=== PATIENT | female | born 1995 | race Caucasian/White ===

== ENCOUNTER 2018-09-13 06:20 | Day surgery (SDC) | payer OTHER ==
[2018-09-13] MEDS ORDERED: oxyCODONE HCL 5 MG TABLET PO PRN ×2 (06:50)
[2018-09-13 07:12] VITALS: BMI 21.0
--- NOTE | 2018-09-13 07:24 | HP ---
CHIEF COMPLAINT: Major depression PCP: Carlie Curriester [place] [phone] Primary Psychiatrist: [facility] HISTORY OF PRESENT ILLNESS: 23 year-old female with a PMH significant for Sofya's syndrome, asthma, Lyme's Disease, hyperthyroidism s/p thyroidectomy, anorexia, and major depressive disorder. Multiple psych hospitalizations. First received ECT in 09/2016. She presents today for ECT. 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) Asthma Lyme's Disease Hyperthyroidism Anorexia Major depression with psychotic features, strong suicdal ideation PAST SURGICAL HISTORY: T&A (03/1999) Thyroidectomy (12/2012) Allergies Sulfa (Sulfonamide Antibiotics) Allergy (Verified 09/08/18 15:05) seasonal Allergy (Uncoded 09/08/18 15:05) HOME MEDICATIONS: Home Medications Medication Instructions Recorded Aripiprazole [Abilify] 15 mg PO HS 09/08/18 Levothyroxine [Synthroid -] 150 mcg PO DAILY 09/08/18 [place] Carbonate [Eskalith -] 900 mg PO HS 09/08/18 Sertraline HCl [Zoloft -] 50 mg PO DAILY 09/08/18 REVIEW OF SYSTEMS CONSTITUTIONAL: Absent: fever, chills, diaphoresis, generalized weakness, malaise, loss of appetite, weight change HEENT: Absent: rhinorrhea, nasal congestion, throat pain, throat swelling, difficulty swallowing, mouth swelling, ear pain, eye pain, visual changes CARDIOVASCULAR: Absent: chest pain, syncope, palpitations, irregular heart rate, lightheadedness , peripheral edema RESPIRATORY: Absent: cough, shortness of breath, dyspnea with exertion, orthopnea, wheezing, stridor, hemoptysis GASTROINTESTINAL: Absent: abdominal pain, abdominal distension, nausea, vomiting, diarrhea, constipation, melena, hematochezia GENITOURINARY: Absent: dysuria, frequency, urgency, hesitancy, hematuria, flank pain, genital pain MUSCULOSKELETAL: Absent: myalgia, arthralgia, joint swelling, back pain, neck pain SKIN: Absent: rash, itching, pallor HEMATOLOGIC/IMMUNOLOGIC: Absent: easy bleeding, easy bruising, lymphadenopathy, frequent infections ENDOCRINE: Absent: unexplained weight gain, unexplained weight loss, heat intolerance, cold intolerance NEUROLOGIC: Absent: headache, focal weakness or paresthesias, dizziness, unsteady gait, seizure, mental status changes, bladder or bowel incontinence PHYSICAL EXAMINATION Vital Signs - 24 hr 09/13/18 06:54 Temperature 98.2 F Pulse Rate 72 Respiratory 18 Rate Blood Pressure 114/74 O2 Sat by Pulse 100 Oximetry (%) GENERAL: Awake, alert, and fully oriented, in no acute distress. HEAD: Normal with no signs of trauma. EYES: Pupils equal, round and reactive to light, sclera anicteric, conjunctiva clear. LUNGS: Breath sounds equal, clear to auscultation bilaterally. No wheezes, and no crackles. No accessory muscle use. HEART: Regular rate and rhythm, normal S1 and S2 ABDOMEN: Soft, nontender, not distended MUSCULOSKELETAL: Normal range of motion at all joints. No bony deformities or tenderness. No CVA tenderness. UPPER EXTREMITIES: 2+ pulses, warm, well-perfused. No cyanosis. No clubbing. No peripheral edema. LOWER EXTREMITIES: 2+ pulses, warm, well-perfused. No calf tenderness. No peripheral edema. NEUROLOGICAL: Cranial nerves II-XII intact. Normal speech. ASSESSMENT/PLAN: 23 year-old female with a PMH significant for Sofya's syndrome, asthma, Lyme's Disease, hyperthyroidism s/p thyroidectomy, anorexia, and major depressive disorder. Multiple psych hospitalizations. First received ECT in 09/2016. She presents today for ECT. Cardiac --no cardiac history --Revised Cardiac Risk Index for Pre-Operative Risk: 0 points, 0.4% risk of major cardiac event Pulmonary --no pulmonary history Neurological --no neurological or neurosurgical history; no history of trauma Anesthesia --no reported problems with anesthesia ECT is a low risk procedure. The relative benefits of the planned procedure outweigh the relative risks for this patient at this time. Visit type - Emergency Visit Emergency Visit: No - New Patient This patient is new to me today: Yes Date on this admission: 09/13/18 - Critical Care Critical Care patient: No
[2018-09-13] MEDS ORDERED: KETAMINE HCL 500 MG/10 ML VIAL ONE (07:42)
[2018-09-13 09:30] VITALS: TEMP 97.9
[2018-09-13 09:36] VITALS: BP 105/61; PULSE 73
== END 2018-09-13 09:30 | disposition home or self-care (01) ==
LOC: FECT 06:20
PROVIDERS: ATTEND Psychiatry & Neurology Psychiatry
PROC: GZB4ZZZ Other Electroconvulsive Therapy (ICD-10-PCS; principal; 2018-09-13 07:15)
DX: F32.9 Major depressive disorder, single episode, unspecified (principal)
CPT/HCPCS: 81025; 90870; 94760

== ENCOUNTER 2018-09-15 05:45 | Day surgery (SDC) | payer OTHER ==
[2018-09-13 18:41] VITALS: BMI 21.0
[2018-09-15 06:29] VITALS: TEMP 98.3
[2018-09-15] MEDS ORDERED: KETAMINE HCL 500 MG/10 ML VIAL ONE (07:02)
[2018-09-15 09:38] VITALS: BP 108/70; PULSE 77
[2018-09-15] MEDS ORDERED: ONDANSETRON 4 MG/2 ML VIAL IVPUSH PRN (09:43)
[2018-09-15] MEDS ORDERED: LACTATED RINGERS SOLUTION 1,000 ML IV SCH (09:45)
== END 2018-09-15 09:25 | disposition home or self-care (01) ==
LOC: FECT 05:45
PROVIDERS: ATTEND Psychiatry & Neurology Psychiatry
PROC: GZB4ZZZ Other Electroconvulsive Therapy (ICD-10-PCS; principal; 2018-09-15 07:45)
DX: F31.9 Bipolar disorder, unspecified (principal)
CPT/HCPCS: 90870; 94760

== ENCOUNTER 2018-10-03 06:09 | Day surgery (SDC) | payer OTHER | END 2018-10-03 09:10 | disposition home or self-care (01) | LOC: FECT 06:09 ==

== ENCOUNTER 2018-10-10 05:57 | Day surgery (SDC) | payer OTHER | END 2018-10-10 08:50 | disposition home or self-care (01) | LOC: FASU 05:57 ==

== ENCOUNTER 2018-10-13 05:42 | Day surgery (SDC) | payer OTHER | END 2018-10-13 09:02 | disposition home or self-care (01) | LOC: FECT 05:42 ==

== ENCOUNTER 2018-10-17 05:45 | Day surgery (SDC) | payer OTHER | END 2018-10-17 09:25 | disposition home or self-care (01) | LOC: FECT 05:45 ==

== ENCOUNTER 2018-10-20 05:46 | Day surgery (SDC) | payer OTHER ==
[2018-10-20 06:31] VITALS: BMI 20.9
[2018-10-20 08:06] VITALS: TEMP 97.9
[2018-10-20 08:24] VITALS: BP 97/51; PULSE 76
== END 2018-10-20 08:26 | disposition home or self-care (01) ==
LOC: FECT 05:46
PROVIDERS: ATTEND Psychiatry & Neurology Psychiatry
PROC: GZB4ZZZ Other Electroconvulsive Therapy (ICD-10-PCS; principal; 2018-10-20 07:30)
DX: F31.89 Other bipolar disorder (principal)
CPT/HCPCS: 90870; 94760

== ENCOUNTER 2018-10-24 05:45 | Day surgery (SDC) | payer OTHER | END 2018-10-24 08:05 | disposition home or self-care (01) | LOC: FECT 05:45 ==

== ENCOUNTER 2018-10-27 05:47 | Day surgery (SDC) | payer OTHER ==
[2018-10-27 06:47] VITALS: TEMP 98.2; BMI 20.9
[2018-10-27] MEDS ORDERED: LACTATED RINGERS SOLUTION 1,000 ML IV SCH (07:00)
[2018-10-27 08:06] VITALS: PULSE 76
[2018-10-27 08:23] VITALS: BP 101/61
== END 2018-10-27 08:25 | disposition home or self-care (01) ==
LOC: FECT 05:47
PROVIDERS: ATTEND Psychiatry & Neurology Psychiatry
PROC: GZB4ZZZ Other Electroconvulsive Therapy (ICD-10-PCS; principal; 2018-10-27 07:45)
DX: F31.60 Bipolar disorder, current episode mixed, unspecified (principal)
CPT/HCPCS: 90870; 94760

== ENCOUNTER 2018-11-01 05:41 | Day surgery (SDC) | payer OTHER ==
[2018-10-27 12:09] VITALS: BMI 20.9
[2018-11-01] MEDS ORDERED: ACETAMINOPHEN 325 MG TABLET (FP) PO PRN (07:44)
[2018-11-01] MEDS ORDERED: ONDANSETRON 4 MG/2 ML VIAL IVPUSH PRN (07:44)
[2018-11-01 08:01] VITALS: BP 97/52; TEMP 97.3
[2018-11-01 08:29] VITALS: PULSE 76
== END 2018-11-01 08:30 | disposition home or self-care (01) ==
LOC: FECT 05:41
PROVIDERS: ATTEND Psychiatry & Neurology Psychiatry
PROC: GZB4ZZZ Other Electroconvulsive Therapy (ICD-10-PCS; principal; 2018-11-01 07:30)
DX: F31.89 Other bipolar disorder (principal)
CPT/HCPCS: 81025; 90870; 94760

== ENCOUNTER 2018-11-07 05:41 | Day surgery (SDC) | payer OTHER ==
[2018-11-07 06:52] VITALS: BMI 20.9
[2018-11-07] MEDS ORDERED: LACTATED RINGERS SOLUTION 1,000 ML IV SCH (07:00)
[2018-11-07 08:39] VITALS: TEMP 98.2
[2018-11-07 08:40] VITALS: BP 101/56; PULSE 77
== END 2018-11-07 08:35 | disposition home or self-care (01) ==
LOC: FECT 05:41
PROVIDERS: ATTEND Psychiatry & Neurology Psychiatry
PROC: GZB4ZZZ Other Electroconvulsive Therapy (ICD-10-PCS; principal; 2018-11-07 08:30)
DX: F31.89 Other bipolar disorder (principal)
CPT/HCPCS: 81025; 90870; 94760

== ENCOUNTER 2018-11-15 06:54 | Day surgery (SDC) | payer OTHER ==
[2018-11-15 08:12] VITALS: BMI 20.9
[2018-11-15 08:23] VITALS: BP 113/64; PULSE 88; TEMP 97.9
[2018-11-15] MEDS ORDERED: LACTATED RINGERS SOLUTION 1,000 ML IV SCH (09:45)
[2018-11-15] MEDS ORDERED: PROMETHAZINE HCL 25 MG/1 ML VIAL IVPUSH PRN (09:45)
[2018-11-15] MEDS ORDERED: ACETAMINOPHEN 325 MG TABLET (FP) PO PRN (09:45)
== END 2018-11-15 08:30 | disposition home or self-care (01) ==
LOC: FECT 06:54
PROVIDERS: ATTEND Psychiatry & Neurology Psychiatry
PROC: GZB4ZZZ Other Electroconvulsive Therapy (ICD-10-PCS; principal; 2018-11-15 07:15)
DX: F31.89 Other bipolar disorder (principal)
CPT/HCPCS: 81025; 90870; 94760

== ENCOUNTER 2018-11-21 05:54 | Day surgery (SDC) | payer OTHER ==
[2018-11-21 07:46] VITALS: TEMP 98; BMI 20.9
--- NOTE | 2018-11-21 07:57 | HP ---
CHIEF COMPLAINT: Major depression PCP: Dr. Дмитрий Soler, [place] [phone] Primary Psychiatrist: [facility] HISTORY OF PRESENT ILLNESS: 23 year-old female with a PMH significant for Sofya's syndrome, asthma, Lyme's Disease, hyperthyroidism s/p thyroidectomy, anorexia, and major depressive disorder. Multiple psych hospitalizations. First received ECT in 09/2016. She presents today for ECT. 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 in [place] Allergies Sulfa (Sulfonamide Antibiotics) Allergy (Verified 10/23/18 14:28) seasonal Allergy (Uncoded 10/23/18 14:28) HOME MEDICATIONS: Home Medications Medication Instructions Recorded Aripiprazole [Abilify] 15 mg PO HS 09/08/18 Levothyroxine [Synthroid -] 150 mcg PO DAILY 09/08/18 [place] Carbonate [Eskalith -] 900 mg PO HS 09/08/18 Divalproex Sodium [Depakote] 250 mg PO HS 10/13/18 REVIEW OF SYSTEMS CONSTITUTIONAL: Absent: fever, chills, diaphoresis, generalized weakness, malaise, loss of appetite, weight change HEENT: Absent: rhinorrhea, nasal congestion, throat pain, throat swelling, difficulty swallowing, mouth swelling, ear pain, eye pain, visual changes CARDIOVASCULAR: Absent: chest pain, syncope, palpitations, irregular heart rate, lightheadedness , peripheral edema RESPIRATORY: Absent: cough, shortness of breath, dyspnea with exertion, orthopnea, wheezing, stridor, hemoptysis GASTROINTESTINAL: Absent: abdominal pain, abdominal distension, nausea, vomiting, diarrhea, constipation, melena, hematochezia GENITOURINARY: Absent: dysuria, frequency, urgency, hesitancy, hematuria, flank pain, genital pain MUSCULOSKELETAL: Absent: myalgia, arthralgia, joint swelling, back pain, neck pain SKIN: Absent: rash, itching, pallor HEMATOLOGIC/IMMUNOLOGIC: Absent: easy bleeding, easy bruising, lymphadenopathy, frequent infections ENDOCRINE: Absent: unexplained weight gain, unexplained weight loss, heat intolerance, cold intolerance NEUROLOGIC: Absent: headache, focal weakness or paresthesias, dizziness, unsteady gait, seizure, mental status changes, bladder or bowel incontinence PHYSICAL EXAMINATION Vital Signs - 24 hr 11/21/18 07:43 Temperature 98.0 F Pulse Rate 91 H Respiratory 18 Rate Blood Pressure 103/74 O2 Sat by Pulse 98 Oximetry (%) GENERAL: Awake, alert, and fully oriented, in no acute distress. HEAD: Normal with no signs of trauma. EYES: Pupils equal, round and reactive to light, sclera anicteric, conjunctiva clear. LUNGS: Breath sounds equal, clear to auscultation bilaterally. No wheezes, and no crackles. No accessory muscle use. HEART: Regular rate and rhythm, normal S1 and S2 ABDOMEN: Soft, nontender, not distended MUSCULOSKELETAL: Normal range of motion at all joints. No bony deformities or tenderness. No CVA tenderness. UPPER EXTREMITIES: 2+ pulses, warm, well-perfused. No cyanosis. No clubbing. No peripheral edema. LOWER EXTREMITIES: 2+ pulses, warm, well-perfused. No calf tenderness. No peripheral edema. NEUROLOGICAL: Cranial nerves II-XII intact. Normal speech. ASSESSMENT/PLAN: 23 year-old female with a PMH significant for Sofya's syndrome, asthma, Lyme's Disease, hyperthyroidism s/p thyroidectomy, anorexia, and major depressive disorder. She presents today for ECT. Cardiac --no cardiac history --Revised Cardiac Risk Index for Pre-Operative Risk: 0 points, 0.4% risk of major cardiac event Pulmonary --no pulmonary history Neurological --no neurological or neurosurgical history; no history of trauma Anesthesia --no reported problems with anesthesia ECT is a low risk procedure. The relative benefits of the planned procedure outweigh the relative risks for this patient at this time. Visit type - Emergency Visit Emergency Visit: No - New Patient This patient is new to me today: Yes Date on this admission: 11/21/18 - Critical Care Critical Care patient: No
[2018-11-21] MEDS ORDERED: ACETAMINOPHEN 325 MG TABLET (FP) PO PRN (08:35)
[2018-11-21 09:58] VITALS: BP 94/56; PULSE 66
== END 2018-11-21 10:00 | disposition home or self-care (01) ==
LOC: FECT 05:54
PROVIDERS: ATTEND Psychiatry & Neurology Psychiatry
PROC: GZB4ZZZ Other Electroconvulsive Therapy (ICD-10-PCS; principal; 2018-11-21 08:15)
DX: F31.89 Other bipolar disorder (principal)
CPT/HCPCS: 81025; 90870; 94760

== ENCOUNTER 2018-11-28 05:46 | Day surgery (SDC) | payer OTHER ==
[2018-11-28 06:40] VITALS: BMI 21.5
[2018-11-28 08:21] VITALS: TEMP 98
[2018-11-28 08:45] VITALS: BP 102/60; PULSE 73
[2018-11-28] MEDS ORDERED: oxyCODONE HCL 5 MG TABLET PO PRN (08:47)
[2018-11-28] MEDS ORDERED: ONDANSETRON 4 MG/2 ML VIAL IVPUSH PRN (08:47)
== END 2018-11-28 08:50 | disposition home or self-care (01) ==
LOC: FECT 05:46
PROVIDERS: ATTEND Psychiatry & Neurology Psychiatry
PROC: GZB4ZZZ Other Electroconvulsive Therapy (ICD-10-PCS; principal; 2018-11-28 07:45)
DX: F31.62 Bipolar disorder, current episode mixed, moderate (principal)
CPT/HCPCS: 81025; 90870; 94760

== ENCOUNTER 2018-12-05 05:38 | Day surgery (SDC) | payer OTHER | END 2018-12-05 08:50 | disposition home or self-care (01) | LOC: FECT 05:38 ==

== ENCOUNTER 2018-12-19 05:40 | Day surgery (SDC) | payer OTHER ==
--- NOTE | 2018-12-19 07:06 | HP ---
CHIEF COMPLAINT: Major depression PCP: Dr. Дмитрий Soler, [place] [phone] Primary Psychiatrist: [facility] HISTORY OF PRESENT ILLNESS: 23 year-old female with a PMH significant for Sofya's syndrome, asthma, Lyme's Disease, hyperthyroidism s/p thyroidectomy, anorexia, and major depressive disorder. Multiple psych hospitalizations. First received ECT in 09/2016. She presents today for ECT. 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) Asthma Lyme's Disease Hyperthyroidism Anorexia Major depression with psychotic features PAST SURGICAL HISTORY: T&A (03/1999) Thyroidectomy (12/2012) Social History: works in [employer]; lives with family in [facility] in [place] Family history: non-contributory Allergies Sulfa (Sulfonamide Antibiotics) Allergy (Verified 12/05/18 06:35) UNKNOW seasonal Allergy (Uncoded 12/05/18 06:35) HOME MEDICATIONS: Home Medications Medication Instructions Recorded Aripiprazole [Abilify] 15 mg PO HS 09/08/18 Levothyroxine [Synthroid -] 150 mcg PO DAILY 09/08/18 [place] Carbonate [Eskalith -] 900 mg PO HS 09/08/18 Divalproex Sodium [Depakote] 250 mg PO HS 10/13/18 REVIEW OF SYSTEMS CONSTITUTIONAL: Absent: fever, chills, diaphoresis, generalized weakness, malaise, loss of appetite, weight change HEENT: Absent: rhinorrhea, nasal congestion, throat pain, throat swelling, difficulty swallowing, mouth swelling, ear pain, eye pain, visual changes CARDIOVASCULAR: Absent: chest pain, syncope, palpitations, irregular heart rate, lightheadedness , peripheral edema RESPIRATORY: Absent: cough, shortness of breath, dyspnea with exertion, orthopnea, wheezing, stridor, hemoptysis GASTROINTESTINAL: Absent: abdominal pain, abdominal distension, nausea, vomiting, diarrhea, constipation, melena, hematochezia GENITOURINARY: Absent: dysuria, frequency, urgency, hesitancy, hematuria, flank pain, genital pain MUSCULOSKELETAL: Absent: myalgia, arthralgia, joint swelling, back pain, neck pain SKIN: Absent: rash, itching, pallor HEMATOLOGIC/IMMUNOLOGIC: Absent: easy bleeding, easy bruising, lymphadenopathy, frequent infections ENDOCRINE: Absent: unexplained weight gain, unexplained weight loss, heat intolerance, cold intolerance NEUROLOGIC: Absent: headache, focal weakness or paresthesias, dizziness, unsteady gait, seizure, mental status changes, bladder or bowel incontinence PHYSICAL EXAMINATION GENERAL: Awake, alert, and fully oriented, in no acute distress. HEAD: Normal with no signs of trauma. EYES: Pupils equal, round and reactive to light, sclera anicteric, conjunctiva clear. LUNGS: Breath sounds equal, clear to auscultation bilaterally. No wheezes, and no crackles. No accessory muscle use. HEART: Regular rate and rhythm, normal S1 and S2 ABDOMEN: Soft, nontender, not distended MUSCULOSKELETAL: Normal range of motion at all joints. No bony deformities or tenderness. No CVA tenderness. UPPER EXTREMITIES: 2+ pulses, warm, well-perfused. No cyanosis. No clubbing. No peripheral edema. LOWER EXTREMITIES: 2+ pulses, warm, well-perfused. No calf tenderness. No peripheral edema. NEUROLOGICAL: Cranial nerves II-XII intact. Normal speech. ASSESSMENT/PLAN: 23 year-old female with a PMH significant for [place]'s syndrome, asthma, Lyme's Disease, hyperthyroidism s/p thyroidectomy, anorexia, and major depressive disorder. She presents today for ECT. Cardiac --no cardiac history --Revised Cardiac Risk Index for Pre-Operative Risk: 0 points, 0.4% risk of major cardiac event Pulmonary --no pulmonary history Neurological --no neurological or neurosurgical history; no history of trauma Anesthesia --no reported problems with anesthesia ECT is a low risk procedure. The relative benefits of the planned procedure outweigh the relative risks for this patient at this time. Visit type - Emergency Visit Emergency Visit: No - New Patient This patient is new to me today: Yes Date on this admission: 12/19/18 - Critical Care Critical Care patient: No
[2018-12-19 07:11] VITALS: TEMP 98.2; BMI 21.4
[2018-12-19] MEDS ORDERED: ONDANSETRON 4 MG/2 ML VIAL IVPUSH PRN (07:38)
[2018-12-19] MEDS ORDERED: oxyCODONE HCL 5 MG TABLET PO PRN (07:38)
[2018-12-19 09:35] VITALS: BP 104/58; PULSE 88
== END 2018-12-19 09:10 | disposition home or self-care (01) ==
LOC: FECT 05:40
PROVIDERS: ATTEND Psychiatry & Neurology Psychiatry
PROC: GZB4ZZZ Other Electroconvulsive Therapy (ICD-10-PCS; principal; 2018-12-19 07:30)
DX: F31.89 Other bipolar disorder (principal)
CPT/HCPCS: 81025; 90870; 94760

== ENCOUNTER 2019-01-02 05:56 | Day surgery (SDC) | payer OTHER ==
[2019-01-02 07:00] VITALS: BMI 21.4
[2019-01-02 08:42] VITALS: TEMP 98.9
[2019-01-02 09:17] VITALS: BP 102/48; PULSE 72
[2019-01-02] MEDS ORDERED: LACTATED RINGERS SOLUTION 1,000 ML IV SCH (10:00)
== END 2019-01-02 09:15 | disposition home or self-care (01) ==
LOC: FECT 05:56
PROVIDERS: ATTEND Psychiatry & Neurology Psychiatry
PROC: GZB4ZZZ Other Electroconvulsive Therapy (ICD-10-PCS; principal; 2019-01-02 07:30)
DX: F31.89 Other bipolar disorder (principal)
CPT/HCPCS: 81025; 90870; 94760

== ENCOUNTER 2019-01-16 05:44 | Day surgery (SDC) | payer OTHER ==
[2019-01-16 07:04] VITALS: BMI 21.4
[2019-01-16] MEDS ORDERED: ONDANSETRON 4 MG/2 ML VIAL IVPUSH PRN (08:22)
[2019-01-16] MEDS ORDERED: ACETAMINOPHEN 325 MG TABLET (FP) PO PRN (08:22)
[2019-01-16] MEDS ORDERED: oxyCODONE HCL 5 MG TABLET PO PRN (08:22)
[2019-01-16 08:33] VITALS: TEMP 98.5
[2019-01-16 09:46] VITALS: BP 96/52; PULSE 68
== END 2019-01-16 09:40 | disposition home or self-care (01) ==
LOC: FECT 05:44
PROVIDERS: ATTEND Psychiatry & Neurology Psychiatry
PROC: GZB4ZZZ Other Electroconvulsive Therapy (ICD-10-PCS; principal; 2019-01-16 07:15)
DX: F31.62 Bipolar disorder, current episode mixed, moderate (principal)
CPT/HCPCS: 81025; 90870; 94760

== ENCOUNTER 2019-01-30 05:44 | Day surgery (SDC) | payer OTHER ==
[2019-01-30 07:13] VITALS: TEMP 98.6
[2019-01-30] MEDS ORDERED: LACTATED RINGERS SOLUTION 1,000 ML IV SCH (07:15)
[2019-01-30 07:28] VITALS: BMI 22.2
--- NOTE | 2019-01-30 07:41 | HP ---
CHIEF COMPLAINT: Major depression PCP: Dr. Дмитрий Soler, [place] [phone] Primary Psychiatrist: [facility] HISTORY OF PRESENT ILLNESS: 23 year-old female with a PMH significant for Sofya syndrome (multiple hamartoma syndrome), asthma, Lyme's Disease, hyperthyroidism s/p thyroidectomy, anorexia, and major depressive disorder. Multiple psych hospitalizations. First received ECT in 09/2016. She presents today for ECT. 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) Asthma Lyme's Disease Hyperthyroidism Anorexia Major depression with psychotic features PAST SURGICAL HISTORY: T&A (03/1999) Thyroidectomy (12/2012) Social History: works in [employer]; lives with family in [facility] in [place] Family history: non-contributory Allergies Sulfa (Sulfonamide Antibiotics) Allergy (Verified 12/05/18 06:35) UNKNOW seasonal Allergy (Uncoded 12/05/18 06:35) HOME MEDICATIONS: Home Medications Medication Instructions Recorded Aripiprazole [Abilify] 15 mg PO HS 09/08/18 Levothyroxine [Synthroid -] 150 mcg PO DAILY 09/08/18 [place] Carbonate [Eskalith -] 900 mg PO HS 09/08/18 Divalproex Sodium [Depakote] 250 mg PO HS 10/13/18 Sertraline HCl [Zoloft -] 50 mg PO DAILY 01/30/19 REVIEW OF SYSTEMS CONSTITUTIONAL: Absent: fever, chills, diaphoresis, generalized weakness, malaise, loss of appetite, weight change HEENT: Absent: rhinorrhea, nasal congestion, throat pain, throat swelling, difficulty swallowing, mouth swelling, ear pain, eye pain, visual changes CARDIOVASCULAR: Absent: chest pain, syncope, palpitations, irregular heart rate, lightheadedness , peripheral edema RESPIRATORY: Absent: cough, shortness of breath, dyspnea with exertion, orthopnea, wheezing, stridor, hemoptysis GASTROINTESTINAL: Absent: abdominal pain, abdominal distension, nausea, vomiting, diarrhea, constipation, melena, hematochezia GENITOURINARY: Absent: dysuria, frequency, urgency, hesitancy, hematuria, flank pain, genital pain MUSCULOSKELETAL: Absent: myalgia, arthralgia, joint swelling, back pain, neck pain SKIN: Absent: rash, itching, pallor HEMATOLOGIC/IMMUNOLOGIC: Absent: easy bleeding, easy bruising, lymphadenopathy, frequent infections ENDOCRINE: Absent: unexplained weight gain, unexplained weight loss, heat intolerance, cold intolerance NEUROLOGIC: Absent: headache, focal weakness or paresthesias, dizziness, unsteady gait, seizure, mental status changes, bladder or bowel incontinence PHYSICAL EXAMINATION Vital Signs - 24 hr 01/30/19 07:04 Temperature 98.6 F Pulse Rate 75 Respiratory 18 Rate Blood Pressure 119/66 O2 Sat by Pulse 100 Oximetry (%) GENERAL: Awake, alert, and fully oriented, in no acute distress. HEAD: Normal with no signs of trauma. EYES: Pupils equal, round and reactive to light, sclera anicteric, conjunctiva clear. LUNGS: Breath sounds equal, clear to auscultation bilaterally. No wheezes, and no crackles. No accessory muscle use. HEART: Regular rate and rhythm, normal S1 and S2 ABDOMEN: Soft, nontender, not distended MUSCULOSKELETAL: Normal range of motion at all joints. No bony deformities or tenderness. No CVA tenderness. UPPER EXTREMITIES: 2+ pulses, warm, well-perfused. No cyanosis. No clubbing. No peripheral edema. LOWER EXTREMITIES: 2+ pulses, warm, well-perfused. No calf tenderness. No peripheral edema. NEUROLOGICAL: Cranial nerves II-XII intact. Normal speech. ASSESSMENT/PLAN: 23 year-old female with a PMH significant for [place]'s syndrome, asthma, Lyme's Disease, hyperthyroidism s/p thyroidectomy, anorexia, and major depressive disorder. She presents today for ECT. Cardiac --no cardiac history --Revised Cardiac Risk Index for Pre-Operative Risk: 0 points, 0.4% risk of major cardiac event Pulmonary --no pulmonary history Neurological --no neurological or neurosurgical history; no history of trauma Anesthesia --no reported problems with anesthesia ECT is a low risk procedure. The relative benefits of the planned procedure outweigh the relative risks for this patient at this time. Visit type - Emergency Visit Emergency Visit: No - New Patient This patient is new to me today: Yes Date on this admission: 01/30/19 - Critical Care Critical Care patient: No
[2019-01-30 08:45] VITALS: PULSE 66
[2019-01-30 09:16] VITALS: BP 92/61
== END 2019-01-30 09:10 | disposition home or self-care (01) ==
LOC: FECT 05:44
PROVIDERS: ATTEND Psychiatry & Neurology Psychiatry
PROC: GZB4ZZZ Other Electroconvulsive Therapy (ICD-10-PCS; principal; 2019-01-30 07:15)
DX: F31.62 Bipolar disorder, current episode mixed, moderate (principal)
CPT/HCPCS: 81025; 90870; 94760

== ENCOUNTER 2019-03-13 06:48 | Day surgery (SDC) | payer OTHER ==
[2019-03-13 08:06] VITALS: BMI 21.6
--- NOTE | 2019-03-13 09:17 | HP ---
CHIEF COMPLAINT: Major depression PCP: CHRISTOPHER Morgan [phone] Primary Psychiatrist: [facility] HISTORY OF PRESENT ILLNESS: 23 year-old female with a PMH significant for Sofya syndrome (multiple hamartoma syndrome), asthma, Lyme's Disease, hyperthyroidism s/p thyroidectomy, anorexia, major depression and deliberate self harm. Multiple psych hospitalizations. First received ECT in 09/2016. She presents today for ECT. 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) Asthma Lyme's Disease Hyperthyroidism Anorexia Major depression with psychotic features Deliberate self harm PAST SURGICAL HISTORY: T&A (03/1999) Thyroidectomy (12/2012) Social History: lives with family; moved on 03/09/19 to [facility], [address] [place] [address], Family history: non-contributory Allergies Sulfa (Sulfonamide Antibiotics) Allergy (Verified 12/05/18 06:35) UNKNOW seasonal Allergy (Uncoded 12/05/18 06:35) HOME MEDICATIONS: Home Medications Medication Instructions Recorded Aripiprazole [Abilify] 15 mg PO HS 09/08/18 Levothyroxine [Synthroid -] 150 mcg PO DAILY 09/08/18 [place] Carbonate [Eskalith -] 900 mg PO HS 09/08/18 Divalproex Sodium [Depakote] 250 mg PO HS 10/13/18 Sertraline HCl [Zoloft -] 50 mg PO DAILY 01/30/19 REVIEW OF SYSTEMS CONSTITUTIONAL: Absent: fever, chills, diaphoresis, generalized weakness, malaise, loss of appetite, weight change HEENT: Absent: rhinorrhea, nasal congestion, throat pain, throat swelling, difficulty swallowing, mouth swelling, ear pain, eye pain, visual changes CARDIOVASCULAR: Absent: chest pain, syncope, palpitations, irregular heart rate, lightheadedness , peripheral edema RESPIRATORY: Absent: cough, shortness of breath, dyspnea with exertion, orthopnea, wheezing, stridor, hemoptysis GASTROINTESTINAL: Absent: abdominal pain, abdominal distension, nausea, vomiting, diarrhea, constipation, melena, hematochezia GENITOURINARY: Absent: dysuria, frequency, urgency, hesitancy, hematuria, flank pain, genital pain MUSCULOSKELETAL: Absent: myalgia, arthralgia, joint swelling, back pain, neck pain SKIN: Absent: rash, itching, pallor HEMATOLOGIC/IMMUNOLOGIC: Absent: easy bleeding, easy bruising, lymphadenopathy, frequent infections ENDOCRINE: Absent: unexplained weight gain, unexplained weight loss, heat intolerance, cold intolerance NEUROLOGIC: Absent: headache, focal weakness or paresthesias, dizziness, unsteady gait, seizure, mental status changes, bladder or bowel incontinence PHYSICAL EXAMINATION Vital Signs - 24 hr 03/13/19 08:01 Temperature 98.0 F Pulse Rate 76 Respiratory 18 Rate Blood Pressure 114/70 O2 Sat by Pulse 99 Oximetry (%) GENERAL: Awake, alert, and fully oriented, in no acute distress. HEAD: Normal with no signs of trauma. EYES: Pupils equal, round and reactive to light, sclera anicteric, conjunctiva clear. LUNGS: Breath sounds equal, clear to auscultation bilaterally. No wheezes, and no crackles. No accessory muscle use. HEART: Regular rate and rhythm, normal S1 and S2 ABDOMEN: Soft, nontender, not distended MUSCULOSKELETAL: Normal range of motion at all joints. No bony deformities or tenderness. No CVA tenderness. UPPER EXTREMITIES: 2+ pulses, warm, well-perfused. No cyanosis. No clubbing. No peripheral edema. LOWER EXTREMITIES: 2+ pulses, warm, well-perfused. No calf tenderness. No peripheral edema. NEUROLOGICAL: Cranial nerves II-XII intact. Normal speech. SKIN: numerous scars on from below the umbilicus, thighs, both legs Laboratory Results - last 24 hr 03/13/19 07:10 Urine HCG, Qual Negative ASSESSMENT/PLAN: 23 year-old female with a PMH significant for Sofya's syndrome, asthma, Lyme's Disease, hyperthyroidism s/p thyroidectomy, anorexia, and major depressive disorder. She presents today for ECT. Deliberate self harm Skin lacerations --extensive scarring, most linear, some carved figures/letters; erythema around some of the wounds although patient states they are all "old"; in various stages of healing --discussed with CHRISTOPHER Vyas, patient's new PCP; he will check on tetanus status and will do follow up exam --next ECT treatment 03/16, will do head to toe exam Cardiac --no cardiac history --Revised Cardiac Risk Index for Pre-Operative Risk: 0 points, 0.4% risk of major cardiac event Pulmonary --no pulmonary history Neurological --no neurological or neurosurgical history; no history of trauma Anesthesia --no reported problems with anesthesia ECT is a low risk procedure. The relative benefits of the planned procedure outweigh the relative risks for this patient at this time. Visit type - Emergency Visit Emergency Visit: No - New Patient This patient is new to me today: Yes Date on this admission: 03/13/19 - Critical Care Critical Care patient: No
[2019-03-13 10:16] VITALS: TEMP 98.3
[2019-03-13 10:21] VITALS: BP 101/55; PULSE 68
--- NOTE | 2019-03-15 14:47 | EKG ---
Test Reason : Blood Pressure : / mmHG Vent. Rate : 067 BPM Atrial Rate : 067 BPM P-R Int : 148 ms QRS Dur : 082 ms QT Int : 418 ms P-R-T Axes : 065 053 046 degrees QTc Int : 441 ms NORMAL SINUS RHYTHM POSSIBLE ANTERIOR INFARCT , AGE UNDETERMINED ABNORMAL ECG NO PREVIOUS ECGS AVAILABLE Confirmed by PLACIDO GONZALEZ, LUZ ([id number]) on 03/15/2019 2:47:25 PM Referred By: Carlos Hudson Confirmed By:LUZ CUMMINS MD
== END 2019-03-13 10:22 | disposition home or self-care (01) ==
LOC: FECT 06:48
PROVIDERS: ATTEND Psychiatry & Neurology Psychiatry
PROC: GZB4ZZZ Other Electroconvulsive Therapy (ICD-10-PCS; principal; 2019-03-13 08:15)
DX: F32.9 Major depressive disorder, single episode, unspecified (principal)
CPT/HCPCS: 84703; 90870; 93005; 94760

== ENCOUNTER 2019-03-16 05:29 | Day surgery (SDC) | payer OTHER ==
[2019-03-16 06:59] VITALS: BMI 21.6
[2019-03-16 09:04] VITALS: TEMP 97.9
--- NOTE | 2019-03-16 09:05 | PN ---
Physical Exam: SUBJECTIVE: Patient seen and examined. MAGDIEL Amato present. OBJECTIVE: Vital Signs Period Temp Pulse Resp BP Sys/Laureano Pulse Ox Last 24 Hr 97.9 F-98.4 F 63-82 14-16 89-115/49-68 99-100 GENERAL: The patient is awake, alert, and fully oriented, in no acute distress. SKIN: Scars, predominantly linear, on lower abdomen, upper anterior thighs, anterior legs and a few posterior legs below the knees; some with keloid formations; no erythema, warmth, swelling, fluctuance, drainage ASSESSMENT/PLAN: Deliberate self harm Major depression --patient denies recent cutting and all wounds are healing or complete healed --no sign of cellulitis Visit type - Emergency Visit Emergency Visit: No - New Patient This patient is new to me today: No - Critical Care Critical Care patient: No
[2019-03-16 09:08] VITALS: BP 93/49; PULSE 67
== END 2019-03-16 08:45 | disposition home or self-care (01) ==
LOC: FECT 05:29
PROVIDERS: ATTEND Psychiatry & Neurology Psychiatry
PROC: GZB4ZZZ Other Electroconvulsive Therapy (ICD-10-PCS; principal; 2019-03-16 07:30)
DX: F25.9 Schizoaffective disorder, unspecified (principal)
CPT/HCPCS: 90870; 94760

== ENCOUNTER 2019-03-20 05:51 | Day surgery (SDC) | payer OTHER ==
[2019-03-16 15:49] VITALS: BMI 21.6
[2019-03-20 08:07] VITALS: PULSE 72; TEMP 98.2
[2019-03-20 09:10] VITALS: BP 96/57
== END 2019-03-20 08:40 | disposition home or self-care (01) ==
LOC: FECT 05:51
PROVIDERS: ATTEND Psychiatry & Neurology Psychiatry
PROC: GZB4ZZZ Other Electroconvulsive Therapy (ICD-10-PCS; principal; 2019-03-20 07:15)
DX: F31.89 Other bipolar disorder (principal)
CPT/HCPCS: 81025; 90870; 94760

== ENCOUNTER 2019-03-23 05:44 | Day surgery (SDC) | payer OTHER ==
[2019-03-23 06:59] VITALS: BMI 21.9
[2019-03-23 09:20] VITALS: BP 108/56; PULSE 78; TEMP 98.2
== END 2019-03-23 09:05 | disposition home or self-care (01) ==
LOC: FECT 05:44
PROVIDERS: ATTEND Psychiatry & Neurology Psychiatry
PROC: GZB4ZZZ Other Electroconvulsive Therapy (ICD-10-PCS; principal; 2019-03-23 08:00)
DX: F31.62 Bipolar disorder, current episode mixed, moderate (principal)
CPT/HCPCS: 90870; 94760

== ENCOUNTER 2019-03-26 06:25 | Day surgery (SDC) | payer OTHER ==
[2019-03-26 07:00] VITALS: BMI 21.9
[2019-03-26] MEDS ORDERED: KETAMINE HCL 500 MG/10 ML VIAL ONE (07:38)
[2019-03-26 08:46] VITALS: TEMP 98.5
[2019-03-26 09:07] VITALS: BP 97/57; PULSE 72
== END 2019-03-26 09:10 | disposition home or self-care (01) ==
LOC: FECT 06:25
PROVIDERS: ATTEND Psychiatry & Neurology Psychiatry
PROC: GZB4ZZZ Other Electroconvulsive Therapy (ICD-10-PCS; principal; 2019-03-26 08:30)
DX: F31.62 Bipolar disorder, current episode mixed, moderate (principal)
CPT/HCPCS: 81025; 90870; 94760

== ENCOUNTER 2019-03-28 05:51 | Day surgery (SDC) | payer OTHER ==
[2019-03-28 06:21] VITALS: BMI 21.9
[2019-03-28 08:30] VITALS: BP 100/61; PULSE 72; TEMP 98.1
== END 2019-03-28 08:25 | disposition home or self-care (01) ==
LOC: FECT 05:51
PROVIDERS: ATTEND Psychiatry & Neurology Psychiatry
PROC: GZB4ZZZ Other Electroconvulsive Therapy (ICD-10-PCS; principal; 2019-03-28 08:15)
DX: F31.62 Bipolar disorder, current episode mixed, moderate (principal)
CPT/HCPCS: 90870; 94760

== ENCOUNTER 2019-04-04 05:42 | Day surgery (SDC) | payer OTHER ==
[2019-04-04 06:30] VITALS: BMI 21.9
[2019-04-04 08:22] VITALS: BP 112/69; PULSE 89; TEMP 98
== END 2019-04-04 08:25 | disposition home or self-care (01) ==
LOC: FECT 05:42
PROVIDERS: ATTEND Psychiatry & Neurology Psychiatry
PROC: GZB4ZZZ Other Electroconvulsive Therapy (ICD-10-PCS; principal; 2019-04-04 07:30)
DX: F31.9 Bipolar disorder, unspecified (principal)
CPT/HCPCS: 81025; 90870; 94760

== ENCOUNTER 2019-04-11 05:44 | Day surgery (SDC) | payer OTHER ==
[2019-04-11 06:25] VITALS: BMI 21.9
[2019-04-11] MEDS ORDERED: ONDANSETRON 4 MG/2 ML VIAL ONE (07:03)
[2019-04-11] MEDS ORDERED: DEXAMETHASONE SOD PHOSPHATE 4 MG/1 ML VIAL ONE (07:03)
[2019-04-11] MEDS ORDERED: KETOROLAC TROMETHAMINE 30 MG/1 ML VIAL ONE (07:03)
[2019-04-11 07:54] VITALS: TEMP 97.9
[2019-04-11] MEDS ORDERED: ONDANSETRON 4 MG/2 ML VIAL IVPUSH PRN (08:14)
[2019-04-11] MEDS ORDERED: ACETAMINOPHEN 325 MG TABLET (FP) PO PRN (08:14)
[2019-04-11] MEDS ORDERED: LACTATED RINGERS SOLUTION 1,000 ML IV SCH (08:15)
[2019-04-11 08:26] VITALS: BP 90/49; PULSE 72
== END 2019-04-11 08:29 | disposition home or self-care (01) ==
LOC: FECT 05:44
PROVIDERS: ATTEND Psychiatry & Neurology Psychiatry
PROC: GZB4ZZZ Other Electroconvulsive Therapy (ICD-10-PCS; principal; 2019-04-11 07:30)
DX: F31.9 Bipolar disorder, unspecified (principal)
CPT/HCPCS: 81025; 90870; 94760

== ENCOUNTER 2019-04-19 06:34 | Day surgery (SDC) | payer OTHER ==
[2019-04-19] MEDS ORDERED: LACTATED RINGERS SOLUTION 1,000 ML IV SCH (07:00)
[2019-04-19 07:35] VITALS: BMI 21.9
[2019-04-19 08:07] LABS: BASO % 0.7 % (0-2.0); EOS % 2.3 % (0-4.5); HEMATOCRIT 33.7 % (32.4-45.2); HEMOGLOBIN 11.3 GM/dl (10.7-15.3); LYMPH % 20.5 % (8-40); MCH 32.3 pg (25.7-33.7); MCHC 33.5 g/dl (32.0-36.0); MEAN CELL VOLUME 96.5 fl (80-96); MEAN PLT VOLUME 7.6 fl (7.5-11.1); MONO % 9.9 % (3.8-10.2); NEUT % 66.6 % (42.8-82.8); PLATELET COUNT 172 K/MM3 (134-434); RBC 3.49 M/mm3 (3.60-5.2); RDW 12.7 % (11.6-15.6); WHITE BLOOD COUNT 3.9 K/mm3 (4.0-10.8)
[2019-04-19 08:21] LABS: ALBUMIN 3.6 g/dl (3.4-5.0); BILIRUBIN,TOTAL 0.6 mg/dl (0.2-1); CALCIUM 9.1 mg/dl (8.5-10); CREATININE 0.7 mg/dl (0.55-1.3); POTASSIUM 4.6 mmol/L (3.5-5.1)
[2019-04-19 09:14] VITALS: TEMP 98.8
[2019-04-19 09:52] VITALS: BP 96/54; PULSE 76
--- NOTE | 2019-04-19 19:25 | HP ---
CHIEF COMPLAINT: PCP: Primary Psychiatrist: HISTORY OF PRESENT ILLNESS: Recent Events: PAST MEDICAL HISTORY: PAST SURGICAL HISTORY: Social History: Smoking: Alcohol: Drugs: Allergies Sulfa (Sulfonamide Antibiotics) Allergy (Verified 04/19/19 12:22) UNKNOW seasonal Allergy (Uncoded 04/19/19 12:22) HOME MEDICATIONS: Home Medications Medication Instructions Recorded Aripiprazole [Abilify] 15 mg PO HS 09/08/18 Levothyroxine [Synthroid -] 150 mcg PO DAILY 09/08/18 [place] Carbonate [Eskalith -] 900 mg PO HS 09/08/18 Divalproex Sodium [Depakote] 250 mg PO HS 10/13/18 Sertraline HCl [Zoloft -] 50 mg PO DAILY 01/30/19 REVIEW OF SYSTEMS CONSTITUTIONAL: Absent: fever, chills, diaphoresis, generalized weakness, malaise, loss of appetite, weight change HEENT: Absent: rhinorrhea, nasal congestion, throat pain, throat swelling, difficulty swallowing, mouth swelling, ear pain, eye pain, visual changes CARDIOVASCULAR: Absent: chest pain, syncope, palpitations, irregular heart rate, lightheadedness , peripheral edema RESPIRATORY: Absent: cough, shortness of breath, dyspnea with exertion, orthopnea, wheezing, stridor, hemoptysis GASTROINTESTINAL: Absent: abdominal pain, abdominal distension, nausea, vomiting, diarrhea, constipation, melena, hematochezia GENITOURINARY: Absent: dysuria, frequency, urgency, hesitancy, hematuria, flank pain, genital pain MUSCULOSKELETAL: Absent: myalgia, arthralgia, joint swelling, back pain, neck pain SKIN: Absent: rash, itching, pallor HEMATOLOGIC/IMMUNOLOGIC: Absent: easy bleeding, easy bruising, lymphadenopathy, frequent infections ENDOCRINE: Absent: unexplained weight gain, unexplained weight loss, heat intolerance, cold intolerance NEUROLOGIC: Absent: headache, focal weakness or paresthesias, dizziness, unsteady gait, seizure, mental status changes, bladder or bowel incontinence PHYSICAL EXAMINATION Vital Signs - 24 hr 04/19/19 04/19/19 04/19/19 07:30 08:28 08:30 Temperature 98.2 F Pulse Rate 88 72 78 Respiratory 16 18 22 H Rate Blood Pressure 107/66 107/55 L 96/57 L O2 Sat by Pulse 100 100 100 Oximetry (%) 12/04/19/19 04/19/19 08:35 08:40 08:45 Temperature Pulse Rate 81 85 76 Respiratory 20 20 13 Rate Blood Pressure 97/53 L 92/53 L 90/51 L O2 Sat by Pulse 100 97 Oximetry (%) 04/19/19 04/19/19 04/19/19 08:50 09:05 09:35 Temperature 98.2 F 98.8 F Pulse Rate 76 72 72 Respiratory 13 16 16 Rate Blood Pressure 90/51 L 88/47 L 91/49 L O2 Sat by Pulse 97 96 95 Oximetry (%) 04/19/19 09:40 Temperature Pulse Rate 76 Respiratory 16 Rate Blood Pressure 96/54 L O2 Sat by Pulse Oximetry (%) GENERAL: Awake, alert, and fully oriented, in no acute distress. HEAD: Normal with no signs of trauma. EYES: Pupils equal, round and reactive to light, sclera anicteric, conjunctiva clear. LUNGS: Breath sounds equal, clear to auscultation bilaterally. No wheezes, and no crackles. No accessory muscle use. HEART: Regular rate and rhythm, normal S1 and S2 ABDOMEN: Soft, nontender, not distended MUSCULOSKELETAL: Normal range of motion at all joints. No bony deformities or tenderness. No CVA tenderness. UPPER EXTREMITIES: 2+ pulses, warm, well-perfused. No cyanosis. No clubbing. No peripheral edema. LOWER EXTREMITIES: 2+ pulses, warm, well-perfused. No calf tenderness. No peripheral edema. NEUROLOGICAL: Cranial nerves II-XII intact. Normal speech. Laboratory Results - last 24 hr 04/19/19 04/19/19 07:45 07:45 WBC 3.9 L RBC 3.49 L Hgb 11.3 Hct 33.7 MCV 96.5 H MCH 32.3 MCHC 33.5 RDW 12.7 Plt Count 172 MPV 7.6 Absolute Neuts (auto) 2.6 Neutrophils % 66.6 Lymphocytes % 20.5 Monocytes % 9.9 Eosinophils % 2.3 Basophils % 0.7 Sodium 140 Potassium 4.6 Chloride 110 H Carbon Dioxide 25 Anion Gap 5 L BUN 13.0 Creatinine 0.7 Est GFR (CKD-EPI)AfAm 142.54 Est GFR (CKD-EPI)NonAf 122.98 Random Glucose 97 Calcium 9.1 Total Bilirubin 0.6 AST 16 ALT 13 Alkaline Phosphatase 34 L Total Protein 6.0 L Albumin 3.6 ASSESSMENT/PLAN: Cardiac --no cardiac history --Revised Cardiac Risk Index for Pre-Operative Risk: 0 points, 0.4% risk of major cardiac event Pulmonary --no pulmonary history Neurological --no neurological or neurosurgical history; no history of trauma Anesthesia --no reported problems with anesthesia ECT is a low risk procedure. The relative benefits of the planned procedure outweigh the relative risks for this patient at this time.
== END 2019-04-19 09:45 | disposition home or self-care (01) ==
LOC: FECT 06:34
PROVIDERS: ATTEND Psychiatry & Neurology Psychiatry
PROC: GZB4ZZZ Other Electroconvulsive Therapy (ICD-10-PCS; principal; 2019-04-19 07:30)
DX: F31.89 Other bipolar disorder (principal)
CPT/HCPCS: 36415; 80053; 85025; 90870; 94760

== ENCOUNTER 2019-04-27 05:43 | Day surgery (SDC) | payer OTHER ==
[2019-04-19 12:25] VITALS: BMI 21.9
[2019-04-27] MEDS ORDERED: LACTATED RINGERS SOLUTION 1,000 ML IV SCH (07:45)
[2019-04-27 08:14] VITALS: TEMP 98
[2019-04-27 08:54] VITALS: PULSE 63
[2019-04-27 09:05] VITALS: BP 89/50
== END 2019-04-27 09:06 | disposition home or self-care (01) ==
LOC: FECT 05:43
PROVIDERS: ATTEND Psychiatry & Neurology Psychiatry
PROC: GZB4ZZZ Other Electroconvulsive Therapy (ICD-10-PCS; principal; 2019-04-27 07:15)
DX: F31.62 Bipolar disorder, current episode mixed, moderate (principal)
CPT/HCPCS: 81025; 90870; 94760

== ENCOUNTER 2019-05-18 05:56 | Day surgery (SDC) | payer OTHER ==
[2019-05-18 06:35] VITALS: TEMP 98.4; BMI 22.2
[2019-05-18 09:24] VITALS: PULSE 60
[2019-05-18 09:36] VITALS: BP 90/52
[2019-05-18] MEDS ORDERED: ONDANSETRON 4 MG/2 ML VIAL IVPUSH PRN (10:38)
[2019-05-18] MEDS ORDERED: LACTATED RINGERS SOLUTION 1,000 ML IV SCH (10:45)
== END 2019-05-18 08:35 | disposition home or self-care (01) ==
LOC: FECT 05:56
PROVIDERS: ATTEND Psychiatry & Neurology Psychiatry
PROC: GZB4ZZZ Other Electroconvulsive Therapy (ICD-10-PCS; principal; 2019-05-18 07:30)
DX: F31.9 Bipolar disorder, unspecified (principal)
CPT/HCPCS: 90870; 94760

== ENCOUNTER 2019-05-31 05:41 | Day surgery (SDC) | payer OTHER ==
[2019-05-31 06:58] VITALS: TEMP 98.4; BMI 23.1
--- NOTE | 2019-05-31 07:38 | HP ---
CHIEF COMPLAINT: Major depression PCP: CHRISTOPHER Morgan [phone] Primary Psychiatrist: [facility] HISTORY OF PRESENT ILLNESS: 23 year-old female with a PMH significant for Sofya syndrome (multiple hamartoma syndrome), asthma, Lyme's Disease, hyperthyroidism s/p thyroidectomy, anorexia, major depression and deliberate self harm. Multiple psych hospitalizations. First received ECT in 09/2016. She presents today for ECT. 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) Asthma Lyme's Disease Hyperthyroidism Anorexia Major depression with psychotic features Deliberate self harm PAST SURGICAL HISTORY: T&A (03/1999) Thyroidectomy (12/2012) Social History: lives with family; moved on 03/09/19 to [facility], [address] [place] [address], Allergies Sulfa (Sulfonamide Antibiotics) Allergy (Verified 04/19/19 12:22) UNKNOW seasonal Allergy (Uncoded 04/19/19 12:22) HOME MEDICATIONS: Home Medications Medication Instructions Recorded Aripiprazole [Abilify] 15 mg PO HS 09/08/18 Levothyroxine [Synthroid -] 150 mcg PO DAILY 09/08/18 [place] Carbonate [Eskalith -] 900 mg PO HS 09/08/18 Sertraline HCl [Zoloft -] 50 mg PO DAILY 01/30/19 Doxycycline Hyclate 100 mg PO BID 05/18/19 REVIEW OF SYSTEMS CONSTITUTIONAL: Absent: fever, chills, diaphoresis, generalized weakness, malaise, loss of appetite, weight change HEENT: Absent: rhinorrhea, nasal congestion, throat pain, throat swelling, difficulty swallowing, mouth swelling, ear pain, eye pain, visual changes CARDIOVASCULAR: Absent: chest pain, syncope, palpitations, irregular heart rate, lightheadedness , peripheral edema RESPIRATORY: Absent: cough, shortness of breath, dyspnea with exertion, orthopnea, wheezing, stridor, hemoptysis GASTROINTESTINAL: Absent: abdominal pain, abdominal distension, nausea, vomiting, diarrhea, constipation, melena, hematochezia GENITOURINARY: Absent: dysuria, frequency, urgency, hesitancy, hematuria, flank pain, genital pain MUSCULOSKELETAL: Absent: myalgia, arthralgia, joint swelling, back pain, neck pain SKIN: Absent: rash, itching, pallor HEMATOLOGIC/IMMUNOLOGIC: Absent: easy bleeding, easy bruising, lymphadenopathy, frequent infections ENDOCRINE: Absent: unexplained weight gain, unexplained weight loss, heat intolerance, cold intolerance NEUROLOGIC: Absent: headache, focal weakness or paresthesias, dizziness, unsteady gait, seizure, mental status changes, bladder or bowel incontinence PHYSICAL EXAMINATION Vital Signs - 24 hr 05/31/19 06:50 Temperature 98.4 F Pulse Rate 69 Respiratory 18 Rate Blood Pressure 117/62 O2 Sat by Pulse 100 Oximetry (%) GENERAL: Awake, alert, and fully oriented, in no acute distress. HEAD: Normal with no signs of trauma. EYES: Pupils equal, round and reactive to light, sclera anicteric, conjunctiva clear. LUNGS: Breath sounds equal, clear to auscultation bilaterally. No wheezes, and no crackles. No accessory muscle use. HEART: Regular rate and rhythm, normal S1 and S2 ABDOMEN: Soft, nontender, not distended MUSCULOSKELETAL: Normal range of motion at all joints. No bony deformities or tenderness. No CVA tenderness. UPPER EXTREMITIES: 2+ pulses, warm, well-perfused. No cyanosis. No clubbing. No peripheral edema. LOWER EXTREMITIES: 2+ pulses, warm, well-perfused. No calf tenderness. No peripheral edema. NEUROLOGICAL: Cranial nerves II-XII intact. Normal speech. ASSESSMENT/PLAN: 23 year-old female with a PMH significant for Casar's syndrome, asthma, Lyme's Disease, hyperthyroidism s/p thyroidectomy, anorexia, and major depressive disorder. She presents today for ECT. Cardiac --no cardiac history --Revised Cardiac Risk Index for Pre-Operative Risk: 0 points, 0.4% risk of major cardiac event Pulmonary --no pulmonary history Neurological --no neurological or neurosurgical history; no history of trauma Anesthesia --no reported problems with anesthesia ECT is a low risk procedure. The relative benefits of the planned procedure outweigh the relative risks for this patient at this time. Visit type - Emergency Visit Emergency Visit: No - New Patient This patient is new to me today: Yes Date on this admission: 05/31/19 - Critical Care Critical Care patient: No
[2019-05-31 09:17] VITALS: BP 101/61; PULSE 79
== END 2019-05-31 08:55 | disposition home or self-care (01) ==
LOC: FECT 05:41
PROVIDERS: ATTEND Psychiatry & Neurology Psychiatry
PROC: GZB4ZZZ Other Electroconvulsive Therapy (ICD-10-PCS; principal; 2019-05-31 07:15)
DX: F31.89 Other bipolar disorder (principal)
CPT/HCPCS: 81025; 90870; 94760

== ENCOUNTER 2019-06-13 05:42 | Day surgery (SDC) | payer OTHER ==
[2019-06-13 06:14] VITALS: TEMP 97.8; BMI 21.9
[2019-06-13 09:25] VITALS: BP 90/55; PULSE 72
== END 2019-06-13 09:26 | disposition home or self-care (01) ==
LOC: FECT 05:42
PROVIDERS: ATTEND Psychiatry & Neurology Psychiatry
PROC: GZB4ZZZ Other Electroconvulsive Therapy (ICD-10-PCS; principal; 2019-06-13 07:15)
DX: F32.9 Major depressive disorder, single episode, unspecified (principal)
CPT/HCPCS: 81025; 90870; 94760

== ENCOUNTER 2019-06-25 06:11 | Day surgery (SDC) | payer OTHER ==
[2019-06-25 06:31] VITALS: BMI 21.9
[2019-06-25] MEDS ORDERED: ONDANSETRON 4 MG/2 ML VIAL IVPUSH PRN (08:05)
[2019-06-25] MEDS ORDERED: ACETAMINOPHEN 500 MG TABLET (FP) PO PRN (08:05)
[2019-06-25] MEDS ORDERED: PROMETHAZINE HCL 25 MG/1 ML VIAL IVPUSH PRN (08:05)
[2019-06-25] MEDS ORDERED: LACTATED RINGERS SOLUTION 1,000 ML IV SCH (08:15)
[2019-06-25 08:27] VITALS: TEMP 99.1
[2019-06-25 09:01] VITALS: BP 100/58; PULSE 77
== END 2019-06-25 08:50 | disposition home or self-care (01) ==
LOC: FECT 06:11
PROVIDERS: ATTEND Psychiatry & Neurology Psychiatry
PROC: GZB4ZZZ Other Electroconvulsive Therapy (ICD-10-PCS; principal; 2019-06-25 08:15)
DX: F31.62 Bipolar disorder, current episode mixed, moderate (principal)
CPT/HCPCS: 81025; 90870; 94760